=== PATIENT | female | born 1945 | race Caucasian/White ===

== ENCOUNTER → 2016-09-25 | Outpatient (CLI) | payer MEDICARE, BC ==
[~2016-09-25] MED LIST: ALLEGRA180 MG PO; AMBIEN10 MG PO; ASPIRIN325 MG PO; CALCIUM 600 +1 EA14 PO; CENTRUM SILVER1 TAB PO; CRESTOR10 MG PO; FERROUS SULFAT134 MG PO; KLONOPIN0.5 MG PO; LOTREL 10-20 M1 EACH PO; MIRALAX17 GM PO; MOBIC15 MG PO; PRILOSEC20 M1 PO; SYNTHROID25 MCG PO; TYLENOL EXTRA500 MG PO; ULTRAM50 MG PO
[2016-09-25 12:17] LABS: CREATININE 0.8 mg/dL (0.5-1.1)
[2016-09-25 12:18] LABS: ESTIMATED GFR (MDRD EQUATION) > 60
== END | disposition disaster alternative care site (69) ==
LOC: GRAD 11:34 → GLAB 12:00
PROVIDERS: Neurological Surgery
DX: Z09 Encounter for follow-up examination after completed treatment for conditions other than malignant neoplasm (principal); D49.6 Neoplasm of unspecified behavior of brain; G93.9 Disorder of brain, unspecified